=== PATIENT | male | born 1975 | race Two or more races ===

== ENCOUNTER 2021-05-29 07:31 | Emergency (ER) | payer OTHER ==
[~2021-05-29] VITALS: Ht 172.7 cm; Wt 81.6 kg
--- NOTE | 2021-05-29 07:45 | NUR ---
at bedside for assessment
[2021-05-29] MEDS ORDERED: IPRATROPIUM BROMIDE 0.5 MG/2.5 ML NEBU NEB ONE (08:00)
[2021-05-29] MEDS ORDERED: ALBUTEROL SULFATE 2.5 MG/3 ML NEBU NEB ONE ×2 (08:00→09:45)
[2021-05-29] MEDS ORDERED: predniSONE 10 MG TABLET PO ONE (08:00)
--- NOTE | 2021-05-29 08:04 | NUR ---
Patient getting breathing treatment at this time
[2021-05-29] MEDS ORDERED: ALBUTEROL SULFATE 2.5 MG/3 ML NEBU ONE ×2 (08:08→09:50)
[2021-05-29] MEDS ORDERED: IPRATROPIUM BROMIDE 0.5 MG/2.5 ML NEBU ONE (08:09)
[2021-05-29] MEDS ORDERED: predniSONE 10 MG TABLET ONE (08:11)
[2021-05-29] MEDS ORDERED: predniSONE 50 MG TABLET ONE (08:11)
[2021-05-29] MEDS ORDERED: ALBU6.7H9 INH (10:13)
[2021-05-29] MEDS ORDERED: ALBU2.5V38 NEB (10:13)
[2021-05-29] MEDS ORDERED: PRED20TA PO (10:13)
--- NOTE | 2021-05-29 10:30 | NUR ---
Patient discharged to home in stable condition. No signs of distress noted, patient able to tolerate amulating and states he no longer feels short of breath. Written and verbal after care instructions given. Patient verbalizes understanding of instructions. Stressed follow up or return to ER for worsening s/s.
[2021-05-29 10:37] VITALS: BP 137/84
== END 2021-05-29 10:30 | disposition home or self-care (01) ==
LOC: ER 07:31
DX: J45.901 Unspecified asthma with (acute) exacerbation (principal); Z20.822 Contact with and (suspected) exposure to COVID-19; Z76.0 Encounter for issue of repeat prescription; R00.0 Tachycardia, unspecified
CPT/HCPCS: 71045; 87426; 94640 ×2; 99291; J7512 ×2; A4663; J3590

== ENCOUNTER 2021-07-04 04:15 | Emergency (ER) | payer OTHER ==
[~2021-07-04] VITALS: Ht 170.2 cm; Wt 81.6 kg
[~2021-07-04 04:15] MED LIST: ALBU2.5V38 NEB; ALBU6.7H9 INH; PRED20TA PO
[2021-07-04] MEDS ORDERED: ALBUTEROL SULFATE 2.5 MG/3 ML NEBU NEB ONE (04:30)
[2021-07-04] MEDS ORDERED: IPRATROPIUM BROMIDE 0.5 MG/2.5 ML NEBU NEB ONE (04:30)
[2021-07-04] MEDS ORDERED: ALBUTEROL SULFATE 2.5 MG/3 ML NEBU ONE (04:37)
[2021-07-04] MEDS ORDERED: IPRATROPIUM BROMIDE 0.5 MG/2.5 ML NEBU ONE (04:38)
--- NOTE | 2021-07-04 04:45 | NUR ---
pt with breathing tx in progress yadira well. spo2 is 99 hr 93.
[2021-07-04] MEDS ORDERED: ALBU6.7H9 INH (05:37)
[2021-07-04] MEDS ORDERED: ALBU2.5V38 NEB (05:37)
--- NOTE | 2021-07-04 05:40 | NUR ---
Patient discharged to home in stable condition. Written and verbal after care instructions given. Patient verbalizes understanding of instructions. Stressed follow up or return to ER for worsening s/s. pt with steady gait, able to ambulate well. Rx was sent to his pharmacy. pt d/c in stable condition.
[2021-07-04 05:43] VITALS: BP 136/80
== END 2021-07-04 05:44 | disposition home or self-care (01) ==
LOC: ER 04:17
DX: J45.901 Unspecified asthma with (acute) exacerbation (principal); Z76.0 Encounter for issue of repeat prescription; Z82.49 Family history of ischemic heart disease and other diseases of the circulatory system; R03.0 Elevated blood-pressure reading, without diagnosis of hypertension
CPT/HCPCS: A4663; J3590

== ENCOUNTER 2021-07-23 19:36 | Emergency (ER) | payer OTHER ==
[~2021-07-23] VITALS: Ht 170.2 cm; Wt 81.6 kg
--- NOTE | 2021-07-23 19:46 | NUR ---
pt present to er with sob and asthma attack states ran out of medications. pt ambulatory without dizzines steady gait no c/o cp.
[2021-07-23] MEDS ORDERED: ALBUTEROL SULFATE 2.5 MG/3 ML NEBU NEB ONE (20:00)
[2021-07-23] MEDS ORDERED: IPRATROPIUM BROMIDE 0.5 MG/2.5 ML NEBU NEB ONE (20:00)
[2021-07-23] MEDS ORDERED: predniSONE 10 MG TABLET PO ONE (20:00)
[2021-07-23] MEDS ORDERED: ALBU8.5H8 IH (20:09)
[2021-07-23] MEDS ORDERED: ALBU0.63 IH (20:09)
[2021-07-23] MEDS ORDERED: FLUT1BLS15 IH (20:09)
[2021-07-23] MEDS ORDERED: PRED20TA PO (20:09)
[2021-07-23] MEDS ORDERED: predniSONE 10 MG TABLET ONE (20:09)
[2021-07-23] MEDS ORDERED: ALBUTEROL SULFATE 2.5 MG/3 ML NEBU ONE (20:25)
[2021-07-23] MEDS ORDERED: IPRATROPIUM BROMIDE 0.5 MG/2.5 ML NEBU ONE (20:25)
[2021-07-23] MEDS ORDERED: ALBUTEROL SULFATE 2.5 MG/ 0.5 ML NEBU NEB ONE (20:45)
[2021-07-23] MEDS ORDERED: ALBUTEROL SULFATE 2.5 MG/ 0.5 ML NEBU ONE (20:54)
[2021-07-23 21:47] VITALS: BP 120/73
--- NOTE | 2021-07-23 21:47 | NUR ---
Patient discharged to home in stable condition. Written and verbal after care instructions given. Patient verbalizes understanding of instructions. Stressed follow up or return to ER for worsening s/s. Patient out of ER with steady gait, no acute signs of distress, VSS, all belongings taken.
== END 2021-07-23 21:48 | disposition home or self-care (01) ==
LOC: ER 19:36
DX: J45.901 Unspecified asthma with (acute) exacerbation (principal); Z76.0 Encounter for issue of repeat prescription
CPT/HCPCS: 94640; 94644; 99285; J7512; A4663; J3590

== ENCOUNTER 2021-10-12 10:27 | Emergency (ER) | payer OTHER ==
[~2021-10-12] VITALS: Ht 177.8 cm; Wt 81.6 kg
[~2021-10-12 10:27] MED LIST changes: +ALBU0.63 IH; +ALBU8.5H8 IH; +FLUT1BLS15 IH
[2021-10-12] MEDS ORDERED: ALBUTEROL SULFATE 2.5 MG/3 ML NEBU NEB ONE (10:30)
[2021-10-12] MEDS ORDERED: IPRATROPIUM BROMIDE 0.5 MG/2.5 ML NEBU NEB ONE (10:30)
[2021-10-12] MEDS ORDERED: predniSONE 10 MG TABLET PO ONE (10:30)
[2021-10-12] MEDS ORDERED: ALBU2.5V38 NEB (10:35)
[2021-10-12] MEDS ORDERED: FLUT1BLS15 IH (10:35)
[2021-10-12] MEDS ORDERED: PRED20TA PO (10:35)
[2021-10-12] MEDS ORDERED: ALBU8.5H8 IH (10:35)
--- NOTE | 2021-10-12 10:39 | NUR ---
DR LYNCH AT BEDSIDE FOR EVALUATION.
[2021-10-12] MEDS ORDERED: predniSONE 50 MG TABLET ONE (10:42)
[2021-10-12] MEDS ORDERED: predniSONE 10 MG TABLET ONE (10:42)
[2021-10-12] MEDS ORDERED: ALBUTEROL SULFATE 2.5 MG/3 ML NEBU ONE (10:48)
[2021-10-12] MEDS ORDERED: IPRATROPIUM BROMIDE 0.5 MG/2.5 ML NEBU ONE (10:49)
--- NOTE | 2021-10-12 11:00 | NUR ---
Patient discharged to home in stable condition. Written and verbal after care instructions given. Patient verbalizes understanding of instructions. Stressed follow up or return to ER for worsening s/s.
[2021-10-12 11:31] VITALS: BP 131/81
== END 2021-10-12 11:00 | disposition home or self-care (01) ==
LOC: ER 10:27
DX: J45.901 Unspecified asthma with (acute) exacerbation (principal); Z76.0 Encounter for issue of repeat prescription; Z87.01 Personal history of pneumonia (recurrent)
CPT/HCPCS: 94640; 99283; J7512 ×2; A4663; J3590

== ENCOUNTER 2022-06-01 04:33 | Emergency (ER) | payer OTHER ==
[~2022-06-01] VITALS: Ht 167.6 cm; Wt 74.8 kg
[2022-06-01] MEDS: IPRATROPIUM BROMIDE 0.5 MG/2.5 ML NEBU NEB ONE (05:07)
[2022-06-01] MEDS ORDERED: ALBUTEROL SULFATE 2.5 MG/3 ML NEBU ONE (05:10)
[2022-06-01] MEDS ORDERED: IPRATROPIUM BROMIDE 0.5 MG/2.5 ML NEBU ONE (05:10)
[2022-06-01] MEDS: LORAZEPAM 0.5 MG TABLET PO ONE ×2 (05:15→06:22)
--- NOTE | 2022-06-01 05:15 | NUR ---
Patient taken to CT by registered respiratory technician
[2022-06-01] MEDS ORDERED: ALBU18HF2 INH (05:20)
[2022-06-01] MEDS: ALBUTEROL SULFATE 2.5 MG/3 ML NEBU NEB ONE (05:27)
[2022-06-01] MEDS ORDERED: LABETALOL HCL 100 MG/20 ML VIAL IV ONE (05:45)
[2022-06-01] MEDS ORDERED: LORAZEPAM 1 MG TABLET ONE (05:46)
[2022-06-01] MEDS ORDERED: PRED20TA PO (06:06)
[2022-06-01 07:00] VITALS: BP 166/100
== END 2022-06-01 07:03 | disposition home or self-care (01) ==
LOC: ER 04:42
DX: J45.901 Unspecified asthma with (acute) exacerbation (principal); F15.90 Other stimulant use, unspecified, uncomplicated
CPT/HCPCS: A4663; J3590